=== PATIENT | male | born 1995 | race Caucasian/White ===

== ENCOUNTER 2016-06-18 18:58 | Emergency (ER) | payer BC ==
[2016-06-18 19:11] VITALS: BP 124/70
--- NOTE | 2016-06-18 19:24 | UC ---
Laceration HPI - HPI Summary HPI Summary: The patient comes in today for: 1. Laceration: Onset: 3 hours ago. Palliative/provocative: Palpation makes soreness worse. Quality:Soreness Region: Left forehead Severity: 0/10 Time: Constant. Associated symptoms: Event: He was skating and fell. The skate blade stuck against his left forehead. He denies any head injury/LOC. No photophobia, or confusion, or headache or nausea. Tetanus: In the last 10 years. * - History Of Current Complaint Chief Complaint: UCLaceration Stated Complaint: HEAD LACERATION Time Seen by Provider: 06/18/16 19:13 Hx Obtained From: Patient, Family/Gold Charmer - Allergies/Home Medications Allergies/Adverse Reactions: Allergies Allergy/AdvReac Type Severity Reaction Status Date / Time No Known Allergies Allergy Verified 06/18/16 19:11 PMH/Surg Hx/FS Hx/Imm Hx Previously Healthy: Yes Endocrine History Of: Denies: Diabetes, Thyroid Disease, Hyperthyroidism, Hypothyroidism, Dyslipidemia Cardiovascular History Of: Denies: Cardiac Disorders, Hypertension, Pacemaker/ICD, Myocardial Infarction , Congestive Heart Failure, Atrial Fibrillation, Deep Vein Thrombosis, Bleeding Disorders Respiratory History Of: Denies: COPD, Asthma, Bronchitis, Pneumonia, Pulmonary Embolism GI/ History Of: Denies: Gastroesophageal Reflux, Ulcer, Gastrointestinal Bleed, Gall Bladder Disease, Kidney Stones, Diverticulitis, Renal Disease, Urosepsis Neurological History Of: Denies: TIA, CVA, Dementia, Seizures, Migraine Psychological History Of: Denies: Anxiety, Depression, Bipolar Disorder, Schizophrenia, Post Traumatic Stress Disorder Cancer History Of: Denies: Lung Cancer, Colorectal Cancer, Breast Cancer, Prostate Cancer, Cervical Cancer Other History Of: Negative For: HIV, Hepatitis B, Hepatitis C, Anticoagulant Therapy - Surgical History Surgical History: None - Family History Known Family History: Negative: Cardiac Disease, Hypertension - Social History Occupation: Student Alcohol Use: None Substance Use Type: None Smoking Status (MU): Never Smoked Tobacco - Immunization History Most Recent Tetanus Shot: UNSURE Review of Systems Constitutional: Negative Skin: Negative Eyes: Negative ENT: Negative Respiratory: Negative Cardiovascular: Negative Gastrointestinal: Negative Genitourinary: Negative All Other Systems Reviewed And Are Negative: Yes Physical Exam Triage Information Reviewed: Yes Appearance: Well-Appearing, No Pain Distress, Well-Nourished Vital Signs: Initial Vital Signs Temp 97.6 F 06/18/16 19:06 Pulse 80 06/18/16 19:06 Resp 16 06/18/16 19:06 BP 124/70 06/18/16 19:06 Vital Signs Reviewed: Yes Eyes: Positive: Conjunctiva Clear. Negative: Discharge ENT: Positive: Hearing grossly normal. Negative: Pharyngeal erythema, Nasal congestion, Nasal drainage, TM bulging, TM dull, TM red, Tonsillar swelling, Tonsillar exudate Dental: Negative: Gross Decay/Caries @, Dental Fracture @ Neck: Positive: Supple, Nontender, No Lymphadenopathy. Negative: Nuchal Rigidity Respiratory: Positive: Lungs clear, No respiratory distress, No accessory muscle use. Negative: Crackles, Wheezing Cardiovascular: Positive: RRR, No Murmur Abdomen Description: Positive: Nontender, No Organomegaly, Soft, Distended, Guarding Musculoskeletal: Positive: Strength Intact, ROM Intact, No Edema Neurological: Positive: Alert, Muscle Tone Normal Psychological: Positive: Age Appropriate Behavior, Consolable Skin: Positive: Other - Lacerations--left forehead: #1: Superficial laceration/scratch: Slight gapping, no bleeding. #2: Deeper laceration: Slight bleeding.. Negative: rashes Laceration Repair - Laceration Repair 1 Description: Linear Laceration Size After Repair: Length (cm) - 2 cm, Width (mm) - 1 mm, Depth (mm) - 1 mm Modified For Repair: No Closure Material: Skin Adhesive 2 Description: Linear Laceration Size After Repair: Length (cm) - 1, Width (mm) - 4, Depth (mm) - 4 Modified For Repair: No Type Injection: Local Anesthesia Used: 2.0% Lido Additive Used (in ml): Epi Cleansing Completed Via Routine Prep: Yes Irrigation With Pressure Irrigation Device: Yes Closure Material: Sutures Suture Of: Skin Suture Type: Nylon - Four 6-0 Laceration Course/Dx - Course/Dx Course Of Treatment: Adhesive to more superficial laceration. suturing for deeper laceration. - Differential Dx - Laceration/Wound Differental Diagnoses: Laceration Provider Diagnoses: Two left forehead lacerations. Discharge - Discharge Plan Condition: Stable Disposition: HOME Patient Education Materials: Laceration (ED), Care For Your Stitches (ED) Referrals: Negin Brock NP [Primary Care Provider] - 1 Week (See your primary care provider or us in about 7 days to have the sutures removed. ) Additional Instructions: Inspect the area daily watching for increased redness, tenderness, swelling or drainage. Gently clean the area with a Q-tip using mild soap such as Dove (without any scents or colorings) and apply Polysporin ointment to the wound. Cover with a non-stick dressing ( Telfa) for the rest of the day. When resting, you may expose the wound to light and air, but not direct sunlight. If there is any oozing, apply pressure. Apply cold compresses to the area for the first 1-2 days. Use [id number] pain medications as needed for pain. Cold compresses can help with pain reduction also. YOu may also use Bruno's Baby Shampoo to clear the area.
[2016-06-18] MEDS ORDERED: Lidocaine 2% W/EPI 1:100,000* 20 ML MDV ONE (19:26)
== END 2016-06-18 20:20 | disposition home or self-care (01) ==
LOC: UCEAST 18:58
DX: S01.81XA Laceration without foreign body of other part of head, initial encounter (principal); V00.211A Fall from ice-skates, initial encounter; Y93.21 Activity, ice skating; Y92.9 Unspecified place or not applicable
CPT/HCPCS: 12001; 12011; 99211; G0463

== ENCOUNTER 2019-07-06 00:05 | Emergency (ER) | payer BC, OTHER ==
[2019-07-06 00:57] LABS: ABS Eosinophils 0.1 10^3/ul (0-0.6); ABS Lymphocytes 2.2 10^3/ul (1.0-4.8); ABS Monocytes 0.4 10^3/ul (0-0.8); ABS Neutrophils 2.3 10^3/ul (1.5-7.7); Eosinophil % 1.6 %; Hematocrit 40 % (42-52); Lymphocyte % 43.8 %; Mean Corpuscular HGB Conc 35 g/dL (31-36); Mean Corpuscular Hemoglobin 31 pg (27-31); Mean Corpuscular Volume 87 fL (80-94); Mean Platelet Volume 7.2 fL (7.4-10.4); Nucleated Red Blood Cells % 0.1; Platelet Count 269 10^3/uL (150-450); Red Blood Count 4.55 10^6 /uL (4.18-5.48); Red Cell Distribution Width 13 % (10-15); White Blood Count 5.1 10^3/uL (3.5-10.8)
[2019-07-06 01:04] LABS: Urine Appearance Clear; Urine Bilirubin Negative (Negative); Urine Blood Negative (Negative); Urine Color Colorless; Urine Glucose Negative (Negative); Urine Ketones Negative (Negative); Urine Nitrite Negative (Negative); Urine Protein Negative (Negative); Urine Specific Gravity 1.002 (1.010-1.030); Urine Urobilinogen Negative (Negative)
--- NOTE | 2019-07-06 01:04 | ED ---
Psychiatric Complaint - HPI Summary HPI Summary: Patient is a 24 y/o M presenting to [facility] with complaints of alcohol intoxication and depression. His parents, brother, and friend wanted the patient to be evaluated as he was making suicidal statements this evening. In the room, he states that he was diagnosed with depression two years ago. He is on Prozac for depression and Vyvanse for ADHD. He states that he is prescribed 30 mg of Vyvanse but typically only takes 20 mg. Patient states that his depression has worsened. However, he denies SI. He states that, "In terms of hurting myself, I wouldn't go through with it because I'm too afraid to". Patient states that he makes suicidal statements as a "last resort" in order to get through to people who are "thick-headed". He does not currently see a therapist. Patient states that he did for some time, but was not able to continue due to insurance issues. He went to a school counselor for some time, but states that it did not work out as he was only able to have an appointment once a month. He notes regular alcohol consumption. He states that he consumes around 2-3 alcoholic drinks a night and "goes crazy" on weekends. Patient notes Hx of marijuana usage and states that he tried his first cigarette a few weeks ago. He states that he started drinking at around 2030 07/05/19 and consumed 4 beers, one mixed drink with two alcohol shots, and two straight alcoholic shots. NKDA reported. No PSHx or procedures reported. FMHx of alcoholism in both sides of family. He states that grandmother had lung cancer. Father had a "rare" colon cancer in early 40s. Home medications and allergies are reviewed. - History Of Current Complaint Chief Complaint: EDMentalHealth Time Seen by Provider: 07/06/19 00:39 Hx Obtained From: Patient Onset/Duration: Lasting Weeks, Still Present, Worse Since Timing: Constant Character: Depressed Associated Signs And Symptoms: Positive: Negative Has Suicidal: Denies: Thoughts - Allergies/Home Medications Allergies/Adverse Reactions: Allergies Allergy/AdvReac Type Severity Reaction Status Date / Time No Known Allergies Allergy Verified 07/06/19 00:28 Home Medications: Home Medications Fluoxetine HCl 1 tab PO DAILY 07/06/19 [History Confirmed 07/06/19] Lisdexamfetamine Dimesylate [Vyvanse] 1 tab PO DAILY 07/06/19 [History Confirmed 07/06/19] PMH/Surg Hx/FS Hx/Imm Hx Endocrine/Hematology History: Denies: Hx Anticoagulant Therapy, Hx Diabetes, Hx Thyroid Disease Cardiovascular History: Denies: Hx Congestive Heart Failure, Hx Deep Vein Thrombosis, Hx Hypertension , Hx Myocardial Infarction, Hx Pacemaker/ICD Respiratory History: Denies: Hx Asthma, Hx Chronic Obstructive Pulmonary Disease (COPD), Hx Lung Cancer, Hx Pneumonia, Hx Pulmonary Embolism GI History: Denies: Hx Gall Bladder Disease, Hx Gastrointestinal Bleed, Hx Ulcer, Hx Urosepsis History: Denies: Hx Kidney Stones, Hx Renal Disease Neurological History: Denies: Hx Dementia, Hx Migraine, Hx Seizures, Hx Transient Ischemic Attacks (TIA) Psychiatric History: Reports: Hx Attention Deficit Hyperactivity Disorder, Hx Depression Denies: Hx Anxiety, Hx Schizophrenia, Hx Bipolar Disorder - Immunization History Date of Tetanus Vaccine: utd Date of Influenza Vaccine: 03/06 Infectious Disease History: No Infectious Disease History: Denies: Traveled Outside the [place] in Last 30 Days - Family History Known Family History: Positive: Other - alcoholism, colon cancer, lung cancer Negative: Cardiac Disease, Hypertension - Social History Alcohol Use: Daily Alcohol Amount: 2-3 or more, weekends a lot more Substance Use Type: Reports: Marijuana Substance Use Comment - Amount & Last Used: a month and a half ago Smoking Status (MU): Current Some Day Smoker - Additional Comments History Additional Comments: PMHx of depression and ADHD. No PSHx or procedures reported. FMHx of alcoholism in both sides of family. He states that grandmother had lung cancer. Father had a "rare" colon cancer in early 40s. Review of Systems Constitutional: Other - positive - alcohol consumption Psychological: Other - negative - SI Positive: Depressed All Other Systems Reviewed And Are Negative: Yes Physical Exam - Summary Physical Exam Summary: General: Well-developed, Well-nourished male. No acute distress. HEENT: Normocephalic, Atraumatic. Eyes: Conjuctiva normal, PERRL. Oropharynx: Clear, mucous membranes moist, (-) exudates. Neck: Soft, FROM, (-) lymphadenopathy, (-) thyromegaly, (-) JVD. Cardiovascular: Normal sinus rhythm, (-) murmur. Lungs: Clear to auscultation bilaterally (-) wheezes, (-) rales, (-) rhonchi. Abdomen: Soft, non-tender, non-distended, (-) organomegaly, normal bowel sounds. Back: (-) CVA tenderness Extremities: No edema. Skin: Warm, dry, (-) rash. Neuro: Alert and oriented x3, no focal deficits. Psychiatric: Slurring words and slow to respond, but appropriate affect. Triage Information Reviewed: Yes Vital Signs On Initial Exam: Initial Vitals Temp Pulse Resp BP Pulse Ox 97.5 F 72 16 142/86 100 07/06/19 00:05 07/06/19 00:05 07/06/19 00:05 07/06/19 00:05 07/06/19 00:05 Vital Signs Reviewed: Yes Procedures - Sedation Patient Received Moderate/Deep Sedation with Procedure: No Diagnostics - Vital Signs Vital Signs Temp Pulse Resp BP Pulse Ox 07/06/19 00:05 97.5 F 72 16 142/86 100 - Laboratory Result Diagrams: 07/06/19 00:49 07/06/19 00:49 Lab Statement: Any lab studies that have been ordered have been reviewed, and results considered in the medical decision making process. Re-Evaluation - Re-Evaluation First Eval Re-Evaluation Time: 01:23 Comment: Patient is medically cleared for MHE. Course/Dx - Course Course Of Treatment: 24 year old male iwth depression and acute alcohol intoxication. here for mental health exam. he has mentioned SI but states he is just trying to get people's attention, he never would really hurt himself. patient is intoxicated but otherwise physical and workup is wnl. mental health evaluation completed. per psychiatry patient safe to discharge home. outpatient follow up arranged. follow up sooner for any worsening symptoms. - Differential Dx/Clinical Impression Provider Diagnosis: Depressive disorder, Alcohol abuse - Physician Notifications Discussed Care Of Patient With: Roberto Romero Time Discussed With Above Provider: 03:36 Instructed by Provider To: Other - Patient's case was reviewed by Dr. Romero, patient to be discharged to home. Discharge ED - Sign-Out/Discharge Documenting (check all that apply): Patient Departure - discharge - Discharge Plan Condition: Stable Disposition: HOME Referrals: [facility] [Other] (Please contact the Counseling Department and schedule an appointment to see the Counselor for further assistance with your emotional well-being) [facility] [Outside] - As Soon As Possible [facility] [Outside] - As Soon As Possible (Please call to schedule an intake appointment for evaluation of possible services for your daily alcohol consumption.) Negin Brock, [employer] [Primary Care Provider] - - Billing Disposition and Condition Condition: STABLE Disposition: Home - Attestation Statements Document Initiated by Abdiase: Yes Documenting Scribe: IRINEO ENRIQUE Provider For Whom Brannon is Documenting (Include Credential): DAYSI SOSA MD Scribe Attestation: I, IRINEO ENRIQUE, scribed for DAYSI SOSA MD on 07/06/19 at 0517. Scribe Documentation Reviewed: Yes Provider Attestation: The documentation as recorded by the scribeIRINEO accurately reflects the service I personally performed and the decisions made by me, DAYSI SOSA MD Status of Scribe Document: Viewed
[2019-07-06 01:13] LABS: ALT 20 U/L (7-52); AST 21 U/L (13-39); Albumin/Globulin Ratio 1.9 (1-3); Alkaline Phosphatase 60 U/L (34-104); Anion Gap 8 mmol/L (2-11); BUN/Creatinine Ratio 20.4 (8-20); Blood Urea Nitrogen 19 mg/dL (6-24); CO2 Carbon Dioxide 27 mmol/L (22-32); Calcium 9.7 mg/dL (8.6-10.3); Chloride 105 mmol/L (101-111); EGFR African American 121.8 (>60); EGFR Non-African American 100.7 (>60); Globulin 2.7 g/dL (2-4); Glucose 88 mg/dL (70-100); Potassium 3.7 mmol/L (3.5-5.0); Sodium 140 mmol/L (135-145); Total Protein 7.7 g/dL (6.4-8.9)
[2019-07-06 01:18] LABS: Acetaminophen < 15 mcg/mL; Alcohol 102 mg/dL (<10); Salicylate < 2.50 mg/dL (<30)
[2019-07-06 01:21] LABS: Urine Benzodiazepine Screen None Detected (None Detect); Urine Opiates Screen None Detected (None Detect)
[2019-07-06 01:33] LABS: TSH (Thyroid Stimulating Horm) 2.86 mcIU/mL (0.34-5.60)
[2019-07-06 03:45] VITALS: BP 108/59
== END 2019-07-06 03:35 | disposition home or self-care (01) ==
LOC: ED 00:05
DX: F32.9 Major depressive disorder, single episode, unspecified (principal); F10.10 Alcohol abuse, uncomplicated; Z72.0 Tobacco use; Z79.899 Other long term (current) drug therapy
CPT/HCPCS: 36415; 80053; 80307; 80320; 80329; 81003; 84443; 85025; 99285; G0480